=== PATIENT | male | born 1995 | race Two or more races ===

== ENCOUNTER 2017-11-05 23:58 | Emergency (ER) | payer OTHER, BC ==
[2017-11-06] MEDS ORDERED: Tetan/Diph/Pertus SYR(Tdap)* 0.5 ML SYR(BOOSTRIX) use SYR IM ONE (00:38)
[2017-11-06] MEDS ORDERED: Cephalexin CAP* 500 MG PO ONE (01:05)
--- NOTE | 2017-11-06 01:09 | ED ---
Upper Extremity Pain - HPI Summary HPI Summary: Complains of left index and left middle finger slammed in van door, with subsequent lacerations to each finger. Denies loss of sensation or function in left hand or fingers. No anti-coag. - History of Current Complaint Chief Complaint: EDLacSutureRecheck Stated Complaint: LEFT FINGER LAC Time Seen by Provider: 11/06/17 00:14 Hx Obtained From: Patient Mechanism Of Injury: Blunt Trauma Onset/Duration: Started Minutes Ago Severity Initially: Moderate Severity Currently: Mild Character: Dull - Allergies/Home Medications Allergies/Adverse Reactions: Allergies Allergy/AdvReac Type Severity Reaction Status Date / Time No Known Allergies Allergy Verified 11/06/17 00:13 PMH/Surg Hx/FS Hx/Imm Hx Infectious Disease History: No Infectious Disease History: Denies: Traveled Outside the [place] in Last 30 Days - Social History Alcohol Use: Weekly Substance Use Type: Reports: None Smoking Status (MU): Never Smoked Tobacco Review of Systems Constitutional: Negative Eyes: Negative ENT: Negative Cardiovascular: Negative Respiratory: Negative Gastrointestinal: Negative Genitourinary: Negative Musculoskeletal: Negative Skin: Negative Neurological: Negative Psychological: Normal All Other Systems Reviewed And Are Negative: Yes Physical Exam - Summary Physical Exam Summary: PMS intact left hand. Patient able to flex and extend all fingers of left hand without indication of pain. No deformity, ecchymosis, swelling, erythema, extra warmth noted to joints of left hand. Laceration to volar surface of PIP of left middle finger. Laceration just distal to PIP joint of volar surface left index finger. No pain with palpation of wrist, or flexion or extension of wrist Triage Information Reviewed: Yes Vital Signs On Initial Exam: Initial Vitals Temp Pulse Resp BP Pulse Ox 98.2 F 93 16 115/61 97 11/06/17 00:12 11/06/17 00:12 11/06/17 00:12 11/06/17 00:12 11/06/17 00:12 Vital Signs Reviewed: Yes Appearance: Positive: Well-Appearing Skin: Positive: Warm Head/Face: Positive: Normal Head/Face Inspection Eyes: Positive: Normal Neck: Positive: Supple Respiratory/Lung Sounds: Positive: Clear to Auscultation Cardiovascular: Positive: Normal Abdomen Description: Positive: Nontender Musculoskeletal: Positive: Normal Neurological: Positive: Normal Psychiatric: Positive: Normal AVPU Assessment: Alert - Meka Coma Scale Best Eye Response: 4 - Spontaneous Best Motor Response: 6 - Obeys Commands Best Verbal Response: 5 - Oriented Coma Scale Total: 15 Procedures - Laceration/Wound Repair 1 Location: upper extremity Description: Linear Anesthesia: Local, 1.0% Length, Depth and Shape: 3cm x .5cm Betadine Prep?: Yes Irrigated w/ Saline (ccs): 20 - saline with betadine Laceration/Wound Explored: clean Closure: Single Layer Suture Type: Prolene Number of Sutures: 4 - 4.0 Layer Closure?: No 2 Location: upper extremity Description: Linear Anesthesia: Local, 1.0% Length, Depth and Shape: 2cm x .5cm Betadine Prep?: Yes Irrigated w/ Saline (ccs): 30 - saline with betadine Laceration/Wound Explored: clean Closure: Single Layer Debridement: minimal Suture Type: Prolene Number of Sutures: 2 - 4.0 Layer Closure?: No Diagnostics - Vital Signs Vital Signs Temp Pulse Resp BP Pulse Ox 11/06/17 00:13 86 97 11/06/17 00:12 98.2 F 95 16 115/61 96 - Laboratory Lab Statement: Any lab studies that have been ordered have been reviewed, and results considered in the medical decision making process. - Radiology finger Xray Interpretation: No Acute Changes Radiology Interpretation Completed By: ED Physician index finger Xray Interpretation: No Acute Changes Radiology Interpretation Completed By: ED Physician Course/Dx - Diagnoses Provider Diagnoses: Laceration, Hand pain, left Discharge - Sign-Out/Discharge Documenting (check all that apply): Discharge/Admit/Transfer - Discharge Plan Condition: Stable Disposition: HOME Patient Education Materials: Care For Your Stitches (ED), Laceration (ED), Finger Laceration (ED) Additional Instructions: May wash with warm running water and soap. Do not go swimming or submerging underwater for long period of time. Sutures out in 10 days. Take antibiotics as directed. Return to the ED for any new or worsening symptoms - Billing Disposition and Condition Condition: STABLE Disposition: HOME
[2017-11-06 03:14] VITALS: BP 110/60
--- NOTE | 2017-11-06 07:56 | RAD ---
INDICATION: Right second and third digit injury COMPARISON: None TECHNIQUE: AP, lateral, and oblique views were obtained. FINDINGS: The bony structures, joint spaces, and soft tissues are normal for age. IMPRESSION: NEGATIVE EXAMINATION.
--- NOTE | 2017-11-06 08:03 | RAD ---
INDICATION: right finger injury COMPARISON: none TECHNIQUE: AP, lateral, and oblique views were obtained. FINDINGS: The bony structures, joint spaces, and soft tissues are normal for age. IMPRESSION: NEGATIVE EXAM
== END 2017-11-06 02:22 | disposition home or self-care (01) ==
LOC: ED 23:58
DX: S61.213A Laceration without foreign body of left middle finger without damage to nail, initial encounter (principal); S61.211A Laceration without foreign body of left index finger without damage to nail, initial encounter; W23.1XXA Caught, crushed, jammed, or pinched between stationary objects, initial encounter; Y93.9 Activity, unspecified; Y92.818 Other transport vehicle as the place of occurrence of the external cause; Z23 Encounter for immunization
CPT/HCPCS: 12002; 73140; 90471; 90715; 99283; A9270-GY